=== PATIENT | male | born 1975 | race Two or more races ===

== ENCOUNTER 2020-05-23 09:43 | Emergency (ER) | payer OTHER ==
[~2020-05-23] VITALS: Ht 180.3 cm; Wt 95.7 kg
[2020-05-23 10:05] VITALS: BP 128/71
--- NOTE | 2020-05-23 10:05 | NUR ---
patient left via wheelchair accompanied by [employer] in custody, no facial grimace noted. Evan wrap applied on the right knee.
== END 2020-05-23 10:05 ==
LOC: ER 09:48
DX: S83.8X1A Sprain of other specified parts of right knee, initial encounter (principal); Z60.2 Problems related to living alone; X58.XXXA Exposure to other specified factors, initial encounter; Y93.89 Activity, other specified; Y92.89 Other specified places as the place of occurrence of the external cause; Y99.8 Other external cause status